=== PATIENT | male | born 1945 | race Caucasian/White ===

== ENCOUNTER 2016-12-20 11:12 | Outpatient (CLI) | payer MEDICARE, OTHER ==
--- NOTE | ~2016-12-20 | HEMODYNAMI ---
PATIENT:SCARLETT ZEPEDA MEDICAL RECORD: [id number] : 43 LOCATION:[facility] ADMISSION DATE: 12/20/16 Generatedon:12/20/201614:57 Patient name: SCARLETT ZEPEDA Patient #: [id number] SSN: [id number] : 1945 Date of study: 12/20/2016 Page: Of Hemodynamic Procedure Report Patient Data Patient Demographics Procedure consent was obtained First Name: SCARLETT Gender: Male Last Name: KATELYN : 1945 Middle Initial: E Age: 71 year(s) Patient #: [id number] Race: SSN: [id number] Additional ID: [id number] Contact details Address: [address] [place] [address] State: [place] City: [place] Zip code: [address] Admission Admission Data Admission Date: 12/20/2016 Admission Time: 11:12 Arrival Date: 12/20/2016 Arrival Time: 13:00 Admit Source: Other Insurance Payor: Medicare Height (in.): 70 BSA: 1.91 (m2) Height (cm.): 177.8 BMI: 23.39 (kg/m2) Weight (lbs.): 163 Weight (kg.): 73.94 Procedure Procedure Types Cath Procedure Diagnostic Procedure PPM/ICD PPM Dual Implant Miscellaneous Procedures Moderate Sedation up to 45 minutes Procedure Description Procedure Date Procedure Date: 12/20/2016 Procedure Start Time: 14:24 Procedure End Time: 14:54 Procedure Staff Name Function Sidney Mohan MD Performing Physician Salinas Grimes MD Assisting physician Yael Stewart RT Scrub Jeny Broderick RN Nurse Iesha Rodríguez RT Monitor Ming Schultz RT Monitor Indication Sick Sinus Syndrome Procedure Data Cath Procedure Fluoroscopy Diagnostic fluoroscopy Total fluoroscopy Time: 3.5 time: 3.5 min min Diagnostic fluoroscopy Total fluoroscopy dose: dose: 86.3 mGy 86.3 mGy Contrast Material Contrast Material Type Amount (ml) Isovue 300 0 Estimated blood loss: 5 ml Procedure Complications No complications Procedure Medications Medication Administration Route Dosage Oxygen NC 2 l/min Ancef (1Gm/50ml NS) I.V.P.B 1 g Ancef Irrigation Topical 1 g (1gm/500ml NS) Lidocaine 1% with added to field 20 ml Epi Bupivacaine 0.5% S.Q. 10 ml 0.9% NaCl I.V. Versed I.V. 1 mg Fentanyl I.V. 50 mcg Versed I.V. 1 mg Fentanyl I.V. 50 mcg Hemodynamics Rest BSA: 1.91 (m2) O2 Consumption: Estimated: 200.34 (ml/min) O2 Consumption indexed : Estimated:104.89 (ml/min/m) Heart Rate: 42 (bpm) Snapshots Pre Cath Intra NCS Post Cath Vital Signs Time Heart Resp SPO2 etCO2 NIBP (mmHg) Rhythm Pain Sedation Rate (ipm) (%) (mmHg) Status Level (bpm) 14:15:04 39 24 97 44.3 164/74(135) SB 0 (11) 10(A) , No pain 14:19:26 41 16 100 41.3 153/78(123) SB 0 (11) 10(A) , No pain 14:23:48 43 16 99 34.5 154/81(126) SB 0 (11) 10(A) , No pain 14:29:10 40 16 99 38.3 181/90(160) SB 0 (11) 10(A) , No pain 14:33:42 41 18 99 36.8 174/86(144) SB 0 (11) 9(A) , No pain 14:38:10 44 16 99 38.3 158/87(135) SB 0 (11) 9(A) , No pain 14:42:34 41 15 100 39.8 166/78(133) SB 0 (11) 10(A) , No pain 14:47:03 55 13 100 42.1 151/79(125) SB 0 (11) 10(A) , No pain 14:52:08 56 16 98 21.8 141/75(98) Paced 0 (11) 10(A) , No pain Medications Time Medication Route Dose Verified Delivered Reason Notes Effectiv eness by by 14:12:51 Ancef I.V.P.B 1 g Sidney Fermin used for (1Gm/50ml [facility] Tony Broderick drilling inspector NS) 14:16:43 Oxygen NC 2 Sidney Fermin used for l/min [facility] Tony Broderick drilling inspector 14:16:58 Ancef Topical 1 g Sidney Fermin used for Irrigation [facility]. Tony Broderick drilling inspector (1gm/500ml NS) 14:17:08 Lidocaine added 20 ml Sidney Niño for local 1% with Epi to St. Tony Grimes MD anesthetic field 14:17:18 Bupivacaine S.Q. 10 ml Sidney Niño for local 0.5% St. Tony Grimes MD anesthetic MD 14:17:29 0.9% NaCl I.V. kvo Sidney Fermin Per ml/hr St. Tony Broderick RN physician 14:20:28 Versed I.V. 1 mg Sidney [place] for [facility] Tony Broderick RN sedation 14:20:34 Fentanyl I.V. 50 Sidney [place] for mcg [facility] Tony Broderick RN sedation 14:27:30 Versed I.V. 1 mg Sidney [place] for [facility] Tony Broderick RN sedation 14:27:35 Fentanyl I.V. 50 Sidney e[place]stbrookie for [facility] Tony Broderick RN sedation Procedure Log Time Note 13:49:48 Informed consent obtained and on chart 13:49:52 Diagnostic Cath Status : Elective 13:50:34 Indication : Sick Sinus Syndrome 13:50:40 Jeny Broderick RN sent for patient. Start room use. 13:50:41 Time tracking: Regular hours 13:50:46 Plan of Care:Hemodynamics will remain stable., Cardiac rhythm will remain stable., Comfort level will be maintained., Respiratory function will remain adequate., Patient/ family verbilizes understanding of procedure., Procedure tolerated without complication., Recovers from procedure without complications.. 13:52:05 Medtronic 4574-45 PPM Lead opened to sterile field. 13:53:13 Medtronic 4074-52 PPM Lead opened to sterile field. 13:55:20 Admit Source: Other 13:55:24 Patient Height : 70 inches 13:55:28 Patient Weight : 163 lbs 13:55:34 Arrival Date: 12/20/2016 1:00:00 PM 13:55:48 Insurance Payor : Medicare 13:58:12 Patient received from Pre/Post Procedure Room to [facility] 3 Alert and oriented. Tansferred to table in Supine position. 13:58:13 Warm blankets applied, and tri hugger turned on for patient comfort. 13:58:14 Correct patient and procedure confirmed by team. 13:58:15 ECG and BP/O2 sat monitors applied to patient. 14:11:36 Medtronic Advisa MRI PPM Dual Generator [id number] opened to sterile field. 14:12:30 Baseline sample Acquired. 14:12:30 Vital chart was started 14:12:43 Full Disclosure recording started 14:12:47 H&P Date Dictated: 12/20/2016 Within 30 days and on chart., H&P Addendum completed by physician on day of procedure. (MUST COMPLETE FOR ALL OUTPATIENTS). 14:12:49 Pre-procedure instructions explained to patient. 14:12:49 Pre-op teaching completed and patient verbalized understanding. 14:12:50 Family in waiting room. 14:12:51 Ancef (1Gm/50ml NS) 1 g I.V.P.B was administered by Jeny Broderick RN; used for procedure; 14:12:51 Patient NPO since Midnight. 14:13:12 Is the patient allergic to Iodine/contrast media? No. 14:13:17 Was the patient premedicated? No 14:13:18 Is patient on blood thinner?No 14:13:20 Patient diabetic? No. 14:13:23 Previous problem with sedation/anesthesia? No ? 14:13:25 Snore? Yes 14:13:27 Sleep apnea? No 14:13:28 Deviated septum? No 14:13:29 Opens mouth fully? Yes 14:13:29 Sticks out tongue? Yes 14:13:51 Airway obstruction? Yes childhood asthma 14:13:55 Dentures? No ? 14:14:03 Pre procedure: right dorsailis pedis pulse 2+ Normal; easily identifiable; not easily obliterated 14:14:06 Pre procedure: left dorsailis pedis pulse 2+ Normal; easily identifiable; not easily obliterated 14:14:08 Patient pain scale 0/10 ?. 14:14:21 IV patent on arrival in left forearm with 0.9% NaCl at KVO. 14:14:26 Lab results completed and on chart. 14:14:31 Left chest area was prepped with chlora-prep and draped in sterile fashion 14:14:32 Alarms reviewed by R. N. 14:14:34 Sharps counted by scrub and verified by R.N. 14:15:04 Mepilex Dressing opened to sterile field. 14:15:27 Rhythm: sinus bradycardia 14:16:43 Oxygen 2 l/min NC was administered by Jeny Broderick RN; used for procedure; 14:16:58 Ancef Irrigation (1gm/500ml NS) 1 g Topical was administered by Jeny Broderick RN; used for procedure; 14:17:08 Lidocaine 1% with Epi 20 ml added to field was administered by Salinas Grimes MD; for local anesthetic; 14:17:18 Bupivacaine 0.5% 10 ml S.Q. was administered by Salinas Grimes MD; for local anesthetic; 14:17:29 0.9% NaCl kvo ml/hr I.V. was administered by Jeny Broderick RN; Per physician; 14:18:09 Iesha Rodríguez RT(R) was relieved by Ming Schultz RT(R) as monitoring person 14:19:18 Physician paged 14:19:53 Physician arrived 14:19:54 --------ALL STOP TIME OUT------ 14:19:54 Final Timeout: patient, procedure, and site verified with staff and physician. All members of the team are in agreement. 14:19:58 Left chest site verified by team. 14:20:07 Physical assessment completed. ASA score P 2 - A patient with mild systemic disease as per Salinas Grimes MD. 14:20:11 Sedation plan: IV Moderate Sedation Versed, Fentanyl 14:20:28 Versed 1 mg I.V. was administered by Jeny Broderick RN; for sedation; 14:20:34 Fentanyl 50 mcg I.V. was administered by Jeny Broderick RN; for sedation; 14:23:41 Procedure started. 14:24:18 [employer] commercial representative jeffery guzman present for procedure. 14:25:02 Pre sharps counted by scrub and verified by RN: Sutures: 7 Sponges: 5 Stick needles: 2 Skin needles: 2 Blade: 1 Cautery: 1 14:25:05 Grounding pad site Right thigh. 14:25:06 Grounding pad site free from injury. 14:25:16 Lidocaine 1% w/epi and Bupivacaine 0.5% to left subclavicular area by Salnias Grimes MD. 14:25:18 Incision made to left subclavicular area. 14::27 Use device set Pacemaker Set 14:25:42 Cautery Tip Electro Winning Operator opened to sterile field. 14::43 Cautery Pushbutton Pencil opened to sterile field. 14:27:30 Versed 1 mg I.V. was administered by Jeny Broderick RN; for sedation; 14::35 Fentanyl 50 mcg I.V. was administered by Jeny Broderick RN; for sedation; 14:28:00 5.0 Monocryl PS2 [id number] opened to sterile field. 14:28:01 2.0 Ticron Multipack opened to sterile field. 14:28:04 Immobilizer Large opened to sterile field. 14:28:17 Generator pocket made/opened. 14:30:57 Left subclavian vein accessed with 7Fr Peel Away Sheath. 14:31:05 Left subclavian vein accessed with 7Fr Peel Away Sheath. 14:31:37 Atrial lead inserted and advanced. 14:32:05 Ventricular lead inserted and advanced. 14:34:01 Ventricular lead positioned. 14:37:30 Ventricular lead tested. 14:39:58 Atrial lead positioned. 14:40:02 Atrial lead tested. 14:40:17 Peel-a-way sheath was split and removed. 14:40:17 Peel-a-way sheath was split and removed. 14:42:41 Atrial lead attachment was completed with 2-0 ticron. 14:42:45 Ventricular lead attachment was completed with 2-0 ticron. 14:42:53 PPM Dual was attached to lead(s) and inserted into pocket. 14:46:13 2-0 Vicryl Plus [id number] opened to sterile field. 14:46:39 PPM Dual was interrogated. 14:46:55 Device pocket was irrigated with Ancef. 14:47:04 Generator was sutured in place with 2-0 ticron. 14:47:10 Subcutaneous closure was completed with 2-0 vicryl. 14:47:31 Parameters-- Generator: Mode: MVP. Lower Rate: 60bpm. Upper Rate: 120bpm. 14:48:21 Skin closure was completed with 5-0 monocryl. 14:48:41 Parameters--Atrial P/R Wave: 3.2mV. Current: 0.3mA; Threshold: 0.3V; Impedence: 810OHMS. 14:49:03 Parameters--Ventricular P/R Wave: 5.8mV. Current: 0.1mA; Threshold: 0.2V; Impedence: 881OHMS. 14:51:11 Procedure ended.(Physican Out) 14:51:25 Fluoroscopy time 03.50 minutes. 14:51:30 Fluoroscopy dose: 86.3 mGy 14:51:30 Flurop Dose total: 86.3 14:51:33 Contrast amount:Isovue 300 0ml. 14:51:50 Post sharps counted by scrub and verified by RN: Sutures: 7 Sponges: 5 Stick needles: 2 Skin needles: 2 Blade: 1 Cautery: 1 14:52:13 Sharps counted by scrub and verified by R.N. 14:52:21 Insertion/operative site no bleeding no hematoma. 14:52:26 Post-op/insertion site Left Chest area dressed using a Mepilex dressing. 14:52:34 Post Chest area:stable, soft, clean and dry 14:52:36 Post Procedure Pulses reassessed and unchanged 14:52:40 Post-procedure physical assessment completed. ASA score P 2 - A patient with mild systemic disease as per Sidney Mohan MD. 14:52:43 Post procedure rhythm: paced 14:52:45 Estimated blood loss: 5 ml 14:52:47 Post procedure instruction explained to patient.Patient verbalizes understanding. 14:52:47 Patient needs reinforcement of post procedure teaching. 14:53:41 Procedure type changed to Cath procedure, Diagnostic procedure, PPM/ICD, PPM Dual Implant, Miscellaneous Procedures, Moderate Sedation up to 45 minutes 14:54:07 Procedure and supply charges have been captured, reviewed, submitted and are correct. 14:54:12 Procedure Complication : No complications 14:54:17 Vital chart was stopped 14:54:17 See physician's report for complete and final results. 14:54:23 Report given to PCU. 14:54:26 Patient transfered to PCU with Stretcher. 14:54:27 Procedure ended. 14:54:27 Full Disclosure recording stopped 14:54:35 End room use (Document Last) Device Usage Item Name Manufacture Quantity Catalog Hospital Part Current Minimal Lot# / Serial# Number Charge Number Stock Stock Code Medtronic Medtronic 1 4574-45 [id number] [id number] 5 [id number] 4574-45 PPM [id number] Lead Medtronic Medtronic 1 4074-52 286096 [id number] 5 [id number] EXP 4074-52 PPM 09-20-2018 Lead Medtronic Medtronic 1 [id number] 275230 [id number] 5 [id number] EXP Advisa MRI 05-10-2018 PPM Dual Generator A2DR01 Mepilex Cardinal 1 [id number] 766965 527697 122599 5 Dressing Health Cautery Tip Microtek 1 [id number] 318403 909965 614216 5 Electro Winning Operator [employer] Cautery Microtek 1 [id number] 383943 52539 [id number] 5 Pushbutton Medical Inc. Pencil 5.0 Ethicon 1 [id number] 155693 102421 412600 5 Monocryl PS2 Y495G 2.0 Ticron Ethicon 3 [id number] 332350 46640 504797 5 Multipack Immobilizer Cardinal 1 [id number] 943259 295422 794393 5 Large Health 2-0 Vicryl Ethicon 1 [id number] 872543 519485 538024 5 Plus [id number] Signature Audit [place] Stage Time Signature Unsigned Intra-Procedure 12/20/2016 Ming Schultz 2:57:18 PM RT(R) Signatures Monitor : Iesha Rodríguez RT Signature : Date : Time : Monitor : Ming Schultz RT Signature : Date : Time : [place] [id number] [facility] [address]
[~2016-12-20 11:12] MED LIST: BAYER CHEWABLE81 MG PO; COREG 3.1253.125 MG PO; LIPITOR40 MG PO; NORCO 10/325 TA1 TA1 PO; SORINE80 MG PO
[2016-12-20 11:38] VITALS: BP 182/76; BMI 23.7
[2016-12-20 12:06] LABS: HEMOGLOBIN 14.8 g/dL (13.5-17.5); MCH 31.2 pg (26.0-34.0); MCHC 34.4 g/dL (31.0-37.0); MCV 90.7 fL (80.0-100.0); MEAN PLATELET VOLUME 9.9 fL (7.4-10.4); RBC 4.74 10x6/uL (4.20-6.10); RDW 12.5 % (11.5-14.5); WBC 8.1 10x3/uL (4.8-10.8)
[2016-12-20 12:17] LABS: APTT 28.1 SECONDS (22.8-39.4); INR 0.99 (0.85-1.17); PROTIME 12.9 SECONDS (11.6-15.0)
[2016-12-20 12:28] LABS: CALC OSMOLALITY 280 mosm/kg (275-300); CALCIUM 9.3 mg/dL (8.5-10.1); CARBON DIOXIDE 28.3 mmol/L (21.0-32.0); CHLORIDE - SERUM 104 mmol/L (98-107); GLUCOSE 117 mg/dL (74-106); POTASSIUM - SERUM 5.1 mmol/L (3.5-5.1); SODIUM 137 mmol/L (136-145); UREA NITROGEN 29 mg/dL (7-18); eGFR NON AFRICAN AMERICAN 78 mL/min (90-120)
--- NOTE | 2016-12-20 15:31 | NUR ---
RECIEVED FROM [employer] DEHYDRATOR OPERATOR. VS WNL. RIGHT CHEST DRSG CLEAN AND DRY. LEFT ARM IN SLING. WILL CONT. PLAN OF CARE.
[2016-12-20 15:41] VITALS: BP 147/76; BMI 23.7
--- NOTE | 2016-12-20 19:21 | NUR ---
ASSESSMENT COMPLETE, A&O, RESPERATIONS EVEN ON RA. DRSG TO LEFT UPPER CHEST C/D/I. NO SWELLING OR BLEEDING NOTED. IV TO LEFT FOREARM SL, SITE CLEAN AND DRY. LEFT ARM IN SLING. PT DENIES PAIN OR NEEDS, BED LOW, CL IN REACH.
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
[2016-12-20 21:53] VITALS: BP 136/70
--- NOTE | 2016-12-20 23:19 | NUR ---
RESTING WITH EYES CLOSED, RESPERATIONS EVEN, NO S/S DISTRESS NOTED.
[2016-12-21 02:37] VITALS: BP 149/73
--- NOTE | 2016-12-21 04:52 | NUR ---
AMBULATING IN MATA, GAIT STEADY.
--- NOTE | 2016-12-21 05:11 | NUR ---
PT LYING IN BED, AWAKE, ALERT, DENIES ANY NEEDS. CONTINUE TO MONITOR CLOSELY. BED LOW, CALL LIGHT IN REACH, SIDE RAILS X 2, HOB 20 DEGREES.
[2016-12-21 05:16] VITALS: BP 153/69
--- NOTE | 2016-12-21 08:41 | NUR ---
HR 41. PACER SPIKES NOT PICKING UP. ZENA WALKER NOTIFIED. STATES THAT PACER IS SET AT 50 AND PACER IS NOT PICKING IT UP BECAUSE OF TH PACS. THEY ARE AWARE OF THIS. PACER HAS BEEN INTEROGATED AND IS WORKING FINE. WILL PROCEED WITH D/C. ORDERED.
[2016-12-21 09:29] VITALS: BP 146/77
--- NOTE | 2016-12-21 10:15 | NUR ---
IV AND TELEMETRY DCD. DC PLANS GIVEN. UNDERSTANDING VOICED. ESCORTED TO CAR BY W/C.
--- NOTE | 2016-12-26 13:30 | HP ---
PATIENT: SCARLETT ZEPEDA MEDICAL RECORD: [id number] ACCOUNT: [id number] LOCATION:[facility]AD : 43 ADMISSION DATE: 12/20/16 HISTORY AND PHYSICAL EXAMINATION HISTORY OF PRESENT ILLNESS: Scarlett Zepeda is a 71-year-old gentleman followed by Dr. Montez in clinic. He has a history of sick sinus syndrome as well as coronary artery disease, had recently become more symptomatic, had 6-second pause, being admitted for permanent pacemaker placement. PAST MEDICAL HISTORY: Includes: 1. History of atrial flutter in the past. 2. Hyperlipidemia. MEDICATIONS: Includes sotalol 80 mg p.o. b.i.d., atorvastatin 20 every day, aspirin 81 every day. SOCIAL HISTORY: Retired as a charter coach driver. Nonsmoker and does exercise vigorously. PHYSICAL EXAMINATION: GENERAL: Pleasant gentleman in no acute distress, appears younger than stated age. HEENT: Normocephalic, atraumatic. NECK: No JVD or bruit. HEART: Regular. LUNGS: Phelps clear. ABDOMEN: Soft, nontender. EXTREMITIES: Pulse 2+. No edema. IMPRESSION: Sick sinus syndrome with pauses, previous history of atrial fibrillation, plan for permanent pacemaker placement. TRANSINT:[id number] Voice Confirmation ID: [id number] DOCUMENT ID: [id number] VALENCIA MANDEL MD at 1330 CC: [id number] DICTATION DATE: 12/20/16 1633 [employer]: 12/20/16 1723 DEP CLI 12/21/16 [place] [address]
--- NOTE | 2016-12-26 13:30 | OP ---
PATIENT NAME: SCARLETT ZEPEDA MEDICAL RECORD: [id number] :43 LOCATION:D.CAT ADMISSION DATE: SURGEON: VALENCIA MANDEL MD DATE OF OPERATION: 12/20/2016 PROCEDURE: Lead portion of permanent pacemaker placement. INDICATION: Lonnie arrhythmias with pauses greater than 6 seconds. SURGEON: Salinas Grimes MD DESCRIPTION OF PROCEDURE: After left subclavian was cannulated via modified Seldinger technique via Dr. Grimes first under fluoroscopic guidance, I placed the RV lead in RV apex without difficulty. After adequate R waves and thresholds were obtained, I placed the right atrial lead, again under fluoroscopic guidance, I placed the right atrial lead in right atrial appendage without difficulty. After P waves and thresholds were again obtained, the leads were attached to appropriate poles of the generator and the pocket was closed via Dr. Grimes. IMPRESSION: Successful lead portion of permanent pacemaker placement of Scarlett Zepeda. COMPLICATIONS: None. ESTIMATED BLOOD LOSS: Minimal. DISPOSITION: To the floor, stable. TRANSINT:[id number] Voice Confirmation ID: [id number] DOCUMENT ID: [id number] VALENCIA MANDEL MD at 1330 CC: [id number] DICTATION DATE: 12/20/16 1502 FISH NET STRINGER: 12/20/16 1838 [facility] CLI 12/21/[address] [address]
--- NOTE | 2016-12-27 14:51 | OP ---
PATIENT NAME: SCARLETT ZEPEDA MEDICAL RECORD: [id number] :43 LOCATION:D.CAT ADMISSION DATE: SURGEON: MANA SU MD DATE OF OPERATION: 12/20/2016 PREOPERATIVE DIAGNOSES: 1. Sick sinus syndrome. 2. Coronary artery disease. 3. Atrial flutter. POSTOPERATIVE DIAGNOSES: 1. Sick sinus syndrome. 2. Coronary artery disease. 3. Atrial flutter. PROCEDURE: 1. Left subclavian vein dual lead pacemaker placement. 2. Fluoroscopic interpretation. SURGEON: Mana Su MD COSURGEON: Sidney Mohan MD REPORT OF PROCEDURE: The patient's left chest was prepped and draped in sterile fashion. A 20 mL of 1% lidocaine with epinephrine was infused into the surrounding tissues. A skin incision was made on the left superior lateral chest and a subcutaneous pouch was made over the pectoral fascia. We cannulated the left subclavian vein with guidewires times 2. The fluoro was used to note that the wires were in good position in the venous system. A dilator trocar device was placed over the wires and the wire and dilators were removed. The leads were advanced through the trocars. At this point, Dr. Mohan positioned the leads in the atrium and ventricle. Once these were tested and noted to be functioning appropriately, then the trocars were removed. The leads were sutured into place with 0 Ti-Cron. We then affixed the leads to the new pacemaker and the pacemaker was placed in the subcutaneous pouch and sutured down to the pectoral fascia using interrupted 0 Ti-Cron. The wound was then irrigated out with antibiotic solution. The subcutaneous tissues were then reapproximated with interrupted 3-0 Vicryl and the skin was closed with running subcutaneous 5-0 Monocryl. COMPLICATIONS: None. CONDITION: Stable. ANESTHESIA: Local MAC. BLOOD LOSS: Minimal. TRANSINT:[id number] Voice Confirmation ID: [id number] DOCUMENT ID: [id number] OPERATIVE REPORT [id number] SCARLETT ZEPEDA CHRISTIAN MD at 1456 CC: [id number] DICTATION DATE: 12/20/16 1454 [employer] BROKER ASSOCIATE: 12/20/16 1641 DEP CLI 12/21/16 [facility] [address] [facility] [place] [address]
== END 2016-12-21 10:16 | disposition home or self-care (01) ==
LOC: D.CATH 11:12 → D.M2 15:24 → D.CATH 12-21 10:16
PROVIDERS: Internal Medicine Cardiovascular Disease
DX: I49.5 Sick sinus syndrome (principal); I25.10 Atherosclerotic heart disease of native coronary artery without angina pectoris; E78.5 Hyperlipidemia, unspecified; Z79.82 Long term (current) use of aspirin; Z79.899 Other long term (current) drug therapy; Z01.812 Encounter for preprocedural laboratory examination

== ENCOUNTER 2016-12-24 20:07 | Emergency (ER) | payer MEDICARE, OTHER | END 2016-12-24 21:50 | disposition home or self-care (01) | LOC: D.ER 20:07 | DX: M43.6 Torticollis (principal); Z85.46 Personal history of malignant neoplasm of prostate; Z95.0 Presence of cardiac pacemaker ==